=== PATIENT | female | born 2000 | race Caucasian/White ===

== ENCOUNTER 2020-02-08 22:18 | Emergency (ER) | payer OTHER ==
[~2020-02-08] VITALS: Ht 167.7 cm; Wt 110.5 kg
--- NOTE | 2020-02-08 22:30 | ED Trauma-Multisystem ---
General Chief Complaint: Trauma-Non Activation Stated Complaint: FELL,HIT HEAD Source of Information: Patient, RN/MD, RN Notes Reviewed Exam Limitations: No Limitations History of Present Illness Date Seen by Provider: Feb 08, 2020 Time Seen by Provider: 22:20 Initial Comments This patient is a 19-year-old female presents to the emergency department status post head injury. Patient states she Bucked off a horse today and struck her right side of her head patient states she can't remember the event. Patient denies loss of consciousness she just has a fuzzy memory about the event. A she is alert 3 otherwise. Patient does have some mild contusion around the temporal parietal area. On the right. Occurred: This Afternoon Severity: Moderate Pain/Injury Location: Head Method of Injury: Fall Associated Symptoms (Fall): Headache Allergies and Home Medications Allergies Coded Allergies: No Known Drug Allergies (Unverified , 02/08/20) Patient Home Medication List Home Medication List Reviewed: Yes Review of Systems Review of Systems Constitutional: No no symptoms reported; see HPI; No chills, No diaphoresis, No dizziness, No fever, No malaise, No weakness, No weight gain, No weight loss, No other Eyes: Denies No Symptoms Reported, Denies See HPI, Denies Blindness, Denies Blurred Vision, Denies Drainage, Denies Decreased Acuity, Denies Foreign Body Sensation, Denies Inflammation, Denies Pain, Denies Photophobia, Denies Previous Injury, Denies Shadows, Denies Tunnel Vision, Denies Vision Changes, Denies Contact Lenses, Denies Glasses, Denies Other Ears: Denies No Symptoms Reported, Denies See HPI, Denies Dizziness, Denies Pain, Denies Tinnitus, Denies Bloody Discharge, Denies Clear Discharge, Denies Purulent Discharge, Denies Serosanguinous Discharge, Denies Previous Injury, Denies Other Nose: No No Symptoms Reported, No See HPI, No Bloody Discharge, No Clear Discharge, No Purulent Discharge, No Serosanguinous Discharge, No Clots, No Congestion, No Epistaxis, No Pain, No Previous Injury, No Other Mouth: No No Symptoms Reported, No See HPI, No Bloody Discharge, No Clear Discharge, No Purulent Discharge, No Serosanguinous Discharge, No Clots, No Loose Teeth, No Pain, No Swelling, No Previous Injury, No Other Throat: No No Symptoms to Report, No See HPI, No Aphonia, No Difficulty With Fluids, No Discharge, No Hoarse, No Muffled, No Neck Stiffness, No Pain, No Painful Swallowing, No Previous Injury, No Swelling, No Other Respiratory: No no symptoms reported, No see HPI, No cough, No dyspnea on e xertion, No hemoptysis, No orthopnea, No phlegm, No short of breath, No stridor, No wheezing, No other Cardiovascular: Denies No Symptoms Reported, Denies See HPI, Denies Chest Pain, Denies Edema, Denies Irregular Heart Rate, Denies Lightheadedness, Denies Palpitations, Denies Syncope, Denies Other Gastrointestinal: No RUQ, No LUQ, No RLQ, No LLQ, No no symptoms reported, No see HPI, No abdominal pain, No constipation, No diarrhea, No dysphagia, No hematemesis, No heartburn, No jaundice, No loss of appetite, No melena, No nausea, No vomiting, No other Musculoskeletal: No no symptoms reported, No see HPI, No back pain, No gout, No joint pain, No joint swelling, No muscle pain, No muscle stiffness, No muscle cramps, No muscle twitching, No muscle weakness, No neck pain, No other Skin: No no symptoms reported; see HPI; No change in color, No change in hair/nails, No dryness, No hx of skin cancer, No lesions, No lumps, No pruritus, No rash, No other Psychiatric/Neurological: Headache Past Glylvfx-Rsybty-Blhjlm Hx Patient Social History Recent Foreign Travel: No Contact w/Someone Who Travel: No Physical Exam Vital Signs Vital Signs - First Documented 02/08/20 22:23 Temp 37.0 Pulse 91 Resp 18 B/P (MAP) 149/85 Pulse Ox 99 O2 Delivery Room Air Height, Weight, BMI Height: '" Weight: lbs. oz. kg; BMI Method: General Appearance: No Apparent Distress, WD/WN Head: Swelling (around the right temporal parietal area) Eyes: Bilateral Eye Normal Inspection, Bilateral Eye PERRL, Bilateral Eye EOMI Cardiovascular: Regular Rate, Rhythm, No Edema, No Gallop, No JVD, No Murmur, Normal Peripheral Pulses Respiratory: Chest Non Tender, Lungs Clear, Normal Breath Sounds, No Accessory Muscle Use, No Respiratory Distress Gastrointestinal: Normal Bowel Sounds, No Organomegaly, No Pulsatile Mass, Non Tender, Soft Neurologic/Psychiatric: Alert, Oriented x3, No Motor/Sensory Deficits, Normal Mood/Affect Skin: Normal Color, Warm/Dry Progress/Results/Core Measures Results/Orders Lab Results Laboratory Tests Test 02/08/20 22:36 Range/Units Urine Color YELLOW Urine Clarity CLOUDY Urine pH 6.0 5-9 Urine Specific [place] 1.025 H 1.016-1.022 Urine Protein TRACE H NEGATIVE Urine Glucose (UA) NEGATIVE NEGATIVE Urine Ketones 1+ H NEGATIVE Urine Nitrite NEGATIVE NEGATIVE Urine Bilirubin 1+ H NEGATIVE Urine Urobilinogen 0.2 < = 1.0 MG/DL Urine Leukocyte Esterase TRACE H NEGATIVE Urine RBC (Auto) NEGATIVE NEGATIVE Urine RBC NONE /HPF Urine WBC 2-5 /HPF Urine Squamous Epithelial Cells 10-25 H /HPF Urine Crystals NONE /LPF Urine Bacteria LARGE H /HPF Urine Casts NONE /LPF Urine Mucus NEGATIVE /LPF Urine Culture Indicated YES My Orders Orders - MELLISA FUENTES MD Ct Head Wo (02/08/20 22:27) Urine Bedside (02/08/20 22:38) Urinalysis (02/08/20 22:46) Urine Culture (02/08/20 22:36) Vital Signs/I&O 02/08/20 22:23 Temp 37.0 Pulse 91 Resp 18 B/P (MAP) 149/85 Pulse Ox 99 O2 Delivery Room Air Progress Progress Note : Time: 23:23 Progress Note Negative head CT Understanding most likely a mild concussion. Following instructions for postconcussion syndrome as instructed. Use ice as needed for swelling. Tylenol Motrin as needed for pain. Follow-up with your PCP in 2-3 days. Departure Impression Primary Impression: Mild concussion Additional Impression: Scalp contusion Disposition: HOME, SELF-CARE Condition: Stable Departure-Patient Inst. Decision time for Depature: 23:24 Referrals: NO,LOCAL PHYSICIAN (PCP) Primary Care Physician Patient Instructions: Minor Head Injury (DC) Add. Discharge Instructions: Understanding most likely a mild concussion. Following instructions for postconcussion syndrome as instructed. Use ice as needed for swelling. Tylenol Motrin as needed for pain. Follow-up with your PCP in 2-3 days. All discharge instructions reviewed with patient and/or family. Voiced understanding. MELLISA FUENTES MD Feb 08, 2020 22:30
[2020-02-08 23:01] LABS: CLARITY,URINE CLOUDY; COLOR,URINE YELLOW; GLUCOSE, URINE (UA) NEGATIVE (NEGATIVE); KETONES,URINE 1+ (NEGATIVE); NITRITE,URINE NEGATIVE (NEGATIVE); PROTEIN,URINE TRACE (NEGATIVE)
[2020-02-08 23:02] LABS: BACTERIA,URINE LARGE /HPF; BILIRUBIN,URINE 1+ (NEGATIVE); LEUKOCYTE ESTERASE ,URINE TRACE (NEGATIVE)
--- NOTE | 2020-02-09 07:31 | Diagnostic Imaging Report ---
PROCEDURE: CT head without contrast. TECHNIQUE: Multiple contiguous axial images were obtained through the brain without the use of intravenous contrast. Auto Exposure Controls were utilized during the CT exam to meet ALARA standards for radiation dose reduction. INDICATION: Fall with loss of memory. There is no hemorrhage, hydrocephalus, edema, mass, mass effect or evidence for elevated intracerebral pressures. No abnormal extra-axial collection. No calvarial fracture deformity. There is no hemo-sinus. IMPRESSION: Normal CT head. Dictated by: Dictated on workstation # [id number]
== END 2020-02-08 23:27 | disposition home or self-care (01) ==
LOC: ER FS 22:20
DX: S06.0X0A Concussion without loss of consciousness, initial encounter (principal); S00.03XA Contusion of scalp, initial encounter; W22.8XXA Striking against or struck by other objects, initial encounter
CPT/HCPCS: 70450; 81000; 84703; 87088